=== PATIENT | male | born 1985 | race Caucasian/White ===

== ENCOUNTER 2020-04-01 15:56 | Observation (INO) ==
[2020-04-01] MEDS ORDERED: Ondansetron 4 MG/2 ML VIAL IVP ONE (16:10)
[2020-04-01] MEDS ORDERED: Isovue-370 500 ML BOTTLE IVP ONE (16:10)
[2020-04-01] MEDS ORDERED: 0.9 % Sodium Chloride 1,000 ML IVC ONE (16:10)
[2020-04-01 16:40] LABS: Basophils % 0.2 %; Hematocrit 44.2 % (37.5-50.1); Hemoglobin 14.4 g/dL (12.9-16.9); Immature Granulocytes % 0.8 % (0-4); Lymphocytes # 0.6 K/mcL (0.6-4.6); Lymphocytes % 3.1 %; Mean Corpuscular HGB Conc 32.6 g/dL (31.6-35.5); Mean Corpuscular Hemoglobin 28.5 pg (28.0-33.3); Mean Corpuscular Volume 87.5 fL (83.0-100.0); Mean Platelet Volume 11.1 fL (9.4-12.4); Monocytes # 0.8 K/mcL (0.0-1.3); Monocytes % 4.2 %; Neutrophils # 17.6 K/mcL (1.6-8.9); Platelet Count 195 K/mcL (140-400); Red Blood Count 5.05 M/mcL (4.19-5.50); Red Cell Distribution Width 13.3 % (11.5-14.5); Segmented Neutrophils % 91.7 %; White Blood Count 19.1 K/mcL (4.3-11.1)
[2020-04-01 16:50] LABS: INR 1.2; Prothrombin Time 13.7 Seconds (9.4-12.1)
[2020-04-01 16:52] LABS: Activated Partial Thrombo Time 26.3 Seconds (26.0-36.0)
[2020-04-01] MEDS ORDERED: levETIRAcetam 1,000 MG in 0.9 % Sodium Chloride 100 ML IVPB STA (17:01)
[2020-04-01 17:10] LABS: Alanine Aminotransferase 53 Units/L (7-52); Albumin 4.2 g/dL (3.5-5.7); Albumin/Globulin Ratio 1.7 (1.1-2.2); Alkaline Phosphatase 91 Units/L (34-104); Aspartate Amino Transferase 45 Units/L (13-39); BUN/Creatinine Ratio 10 (6-26); Bilirubin,Total 0.4 mg/dL (0.3-1.0); Blood Urea Nitrogen 9 mg/dL (6-20); Calcium 9.1 mg/dL (8.6-10.3); Carbon Dioxide 25 mEq/L (23-29); Chloride 102 mEq/L (98-107); Globulin 2.5 g/dL (2.4-3.5); Glucose 95 mg/dL (70-105); Lipase 29 Units/L (11-82); Osmolality,Calculated 284 (280-300); Potassium 3.1 mEq/L (3.5-5.1); Sodium 138 mEq/L (136-145); Total Protein 6.7 g/dL (6.4-8.9); eGFR For African Americans > 60 (> 60); eGFR For Non-African Americans > 60 (> 60)
[2020-04-01 17:20] LABS: Ferritin 126 ng/mL (20-250); Prolactin 3.95 ng/mL (3.00-14.70)
[2020-04-01] MEDS ORDERED: Potassium Chloride Elixir 20 MEQ/15 ML UDC PO ONE (18:27)
[2020-04-01] MEDS ORDERED: Ondansetron 4 MG/2 ML VIAL IVP PRN (19:58)
[2020-04-01] MEDS ORDERED: Naloxone 0.4 MG/ML INJ IVP PRN (19:58)
[2020-04-01] MEDS ORDERED: Ringers Solution, Lactated 1,000 ML IVC SCH (20:00)
[2020-04-01] MEDS: levETIRAcetam 250 MG TABLET PO SCH (20:54)
[2020-04-01] MEDS ORDERED: Vancomycin 1,500 MG/265 ML IV.SOLN IVPB ONE (23:00)
[2020-04-01] MEDS: cefTRIAXone 2,000 MG in Water for inj. (sterile) 20 ML IVP SCH (23:41)
[2020-04-01] MEDS: Ringers Solution, Lactated 1,000 ML IVC SCH (23:42)
[2020-04-01] MEDS: Dexamethasone 4 MG/ML VIAL IVP SCH (23:42)
[2020-04-01] MEDS: Acetaminophen 325 MG TABLET PO PRN (23:44)
[2020-04-01] MEDS ORDERED: *HR* LORazepam 1 MG TABLET PO ONE (23:59)
[2020-04-02 01:17] LABS: Adenovirus Not Detected (Not Detect); Bordetella Pertussis Not Detected (Not Detect); Chlamydophila pneumoniae Not Detected (Not Detect); Coronavirus 229E Not Detected (Not Detect); Coronavirus HKU1 Not Detected (Not Detect); Coronavirus NL63 Not Detected (Not Detect); Coronavirus OC43 Not Detected (Not Detect); Human Metapneumovirus Not Detected (Not Detect); Human Rhinovirus/Enterovirus Not Detected (Not Detect); Influenza A Subtype 2009 H1 Not Detected (Not Detect); Influenza B Not Detected (Not Detect); Mycoplasma pneumoniae Not Detected (Not Detect); Parainfluenza Virus 1 Not Detected (Not Detect); Parainfluenza Virus 2 Not Detected (Not Detect); Parainfluenza Virus 3 Not Detected (Not Detect); Parainfluenza Virus 4 Not Detected (Not Detect); Respiratory Syncytial Virus Not Detected (Not Detect); SARS-CoV-2 Not Detected (Not Detect)
[2020-04-02] MEDS: Dexamethasone 4 MG/ML VIAL IVP SCH (03:40)
[2020-04-02] MEDS: Ringers Solution, Lactated 1,000 ML IVC SCH ×2 (03:43→09:51)
[2020-04-02] MEDS ORDERED: Ringers Solution, Lactated 250 ML IVC PRN (06:21)
[2020-04-02] MEDS: *HR* Enoxaparin 40 MG/0.4 ML SYRINGE SQ SCH (06:40)
[2020-04-02 07:01] LABS: INR 1.3; Prothrombin Time 15.2 Seconds (9.4-12.1)
[2020-04-02 07:12] LABS: Basophils % 0.2 %; Hematocrit 43.7 % (37.5-50.1); Hemoglobin 13.7 g/dL (12.9-16.9); Immature Granulocytes % 0.7 % (0-4); Lymphocytes # 0.9 K/mcL (0.6-4.6); Lymphocytes % 6.5 %; Mean Corpuscular HGB Conc 31.4 g/dL (31.6-35.5); Mean Corpuscular Hemoglobin 27.8 pg (28.0-33.3); Mean Corpuscular Volume 88.8 fL (83.0-100.0); Mean Platelet Volume 11.2 fL (9.4-12.4); Monocytes # 0.1 K/mcL (0.0-1.3); Monocytes % 0.8 %; Neutrophils # 12.5 K/mcL (1.6-8.9); Platelet Count 198 K/mcL (140-400); Red Blood Count 4.92 M/mcL (4.19-5.50); Red Cell Distribution Width 13.5 % (11.5-14.5); Segmented Neutrophils % 91.8 %; White Blood Count 13.6 K/mcL (4.3-11.1)
[2020-04-02 07:32] LABS: Albumin 3.9 g/dL (3.5-5.7); Albumin/Globulin Ratio 1.5 (1.1-2.2); Bilirubin,Indirect 0.3 mg/dL (0.0-1.0); Bilirubin,Total 0.3 mg/dL (0.3-1.0); Globulin 2.6 g/dL (2.4-3.5); Total Protein 6.5 g/dL (6.4-8.9)
[2020-04-02 07:42] LABS: Alanine Aminotransferase 42 Units/L (7-52); Albumin 3.9 g/dL (3.5-5.7); Albumin/Globulin Ratio 1.6 (1.1-2.2); Alkaline Phosphatase 74 Units/L (34-104); Aspartate Amino Transferase 25 Units/L (13-39); BUN/Creatinine Ratio 14 (6-26); Bilirubin,Total 0.3 mg/dL (0.3-1.0); Blood Urea Nitrogen 10 mg/dL (6-20); Carbon Dioxide 23 mEq/L (23-29); Chloride 109 mEq/L (98-107); Chol/HDL Ratio 3.9 (0-4.9); Cholesterol 129 mg/dL (< 200); Globulin 2.5 g/dL (2.4-3.5); Glucose 140 mg/dL (70-105); HDL Cholesterol 33 mg/dL (40-59); LDL Cholesterol,Calculated 81 mg/dL (< 100); Magnesium 1.8 mg/dL (1.6-2.6); Osmolality,Calculated 289 (280-300); Phosphorous 1.9 mg/dL (2.7-4.5); Potassium 4.5 mEq/L (3.5-5.1); Sodium 139 mEq/L (136-145); Total Protein 6.4 g/dL (6.4-8.9); Triglycerides 74 mg/dL (< 150); Troponin I 0.04 ng/mL (< 0.04); eGFR For African Americans > 60 (> 60); eGFR For Non-African Americans > 60 (> 60)
[2020-04-02] MEDS: levETIRAcetam 250 MG TABLET PO SCH ×2 (07:48→22:28)
[2020-04-02 07:58] LABS: Hepatitis B Surface Antigen Nonreactive (Nonreactive)
[2020-04-02 08:27] LABS: Hepatitis A Antibody IgM Nonreactive (Nonreactive); Hepatitis B Core IgM Nonreactive (Nonreactive); Hepatitis C Virus Antibody Nonreactive (Nonreactive)
[2020-04-02] MEDS ORDERED: Gadolinium Contrast Agent (WT Based) IV PRN (09:02)
[2020-04-02] MEDS: cefTRIAXone 2,000 MG in Water for inj. (sterile) 20 ML IVP SCH ×2 (09:50→22:29)
[2020-04-02] MEDS: Acyclovir 500 MG in D5% in Water 100 ML IVPB SCH ×2 (09:51→15:54)
[2020-04-02 10:12] LABS: Bilirubin,Urine Negative (Negative); Blood,Urine Negative (Negative); Clarity,Urine Clear (Clear); Color,Urine Colorless (Yellow); Glucose,Urine (UA) Normal (Normal); Ketones,Urine Negative (Negative); Leukocyte Esterase,Urine Negative (Negative); Nitrite,Urine Negative (Negative); PH,Urine 7.5 pH Units (5.0-8.0); Protein,Urine Negative (Neg-Trace); Specific Gravity,Urine 1.012 (1.010-1.025); Urobilinogen,Urine Normal (Normal)
[2020-04-02 13:27] LABS: Appearance,CSF Clear (Clear)
[2020-04-02] MEDS: Acetaminophen 325 MG TABLET PO PRN ×2 (13:29→22:28)
[2020-04-02 13:30] LABS: Red Blood Cell,CSF < 2000 RBC/mcL
[2020-04-02] MEDS: Vancomycin 1,250 MG/262.5 ML IV.SOLN IVPB SCH ×2 (13:30→22:30)
[2020-04-02 13:58] LABS: Glucose,CSF 80 mg/dL (40-70); Total Protein,CSF 40 mg/dL (15-45)
[2020-04-02] MEDS: Nicotine 21 MG PATCH.TD24 TD SCH (14:28)
[2020-04-02] MEDS ORDERED: *HR* LORazepam 2 MG/ML VIAL IVP PRN (14:52)
[2020-04-02] MEDS ORDERED: *HR* HYDROcodone/Acet 5/325 mg TABLET PO ONE (15:19)
[2020-04-02] MEDS ORDERED: *HR* LORazepam 2 MG/ML VIAL ONE (17:57)
[2020-04-02] MEDS ORDERED: *HR* LORazepam 2 MG/ML VIAL IVP ONE (18:00)
[2020-04-03] MEDS: Acyclovir 500 MG in D5% in Water 100 ML IVPB SCH ×2 (00:44→07:49)
[2020-04-03 02:18] LABS: Basophils % 0.3 %; Eosinophils % 0.3 %; Hemoglobin 12.4 g/dL (12.9-16.9); Immature Granulocytes % 0.4 % (0-4); Lymphocytes # 2.7 K/mcL (0.6-4.6); Lymphocytes % 22.7 %; Mean Corpuscular HGB Conc 32.6 g/dL (31.6-35.5); Mean Corpuscular Hemoglobin 28.4 pg (28.0-33.3); Mean Platelet Volume 11.2 fL (9.4-12.4); Monocytes # 0.7 K/mcL (0.0-1.3); Monocytes % 5.9 %; Neutrophils # 8.4 K/mcL (1.6-8.9); Platelet Count 204 K/mcL (140-400); Red Blood Count 4.37 M/mcL (4.19-5.50); Red Cell Distribution Width 13.1 % (11.5-14.5); Segmented Neutrophils % 70.4 %
[2020-04-03 02:44] LABS: BUN/Creatinine Ratio 17 (6-26); Blood Urea Nitrogen 13 mg/dL (6-20); Calcium 8.6 mg/dL (8.6-10.3); Carbon Dioxide 22 mEq/L (23-29); Chloride 109 mEq/L (98-107); Glucose 108 mg/dL (70-105); Magnesium 1.8 mg/dL (1.6-2.6); Osmolality,Calculated 289 (280-300); Phosphorous 2.6 mg/dL (2.7-4.5); Potassium 3.3 mEq/L (3.5-5.1); Sodium 139 mEq/L (136-145); eGFR For African Americans > 60 (> 60); eGFR For Non-African Americans > 60 (> 60)
[2020-04-03] MEDS: *HR* Enoxaparin 40 MG/0.4 ML SYRINGE SQ SCH (05:18)
[2020-04-03] MEDS: Ringers Solution, Lactated 1,000 ML IVC SCH ×2 (07:26→07:54)
[2020-04-03] MEDS: Nicotine 21 MG PATCH.TD24 TD SCH (07:49)
[2020-04-03] MEDS: levETIRAcetam 250 MG TABLET PO SCH (07:49)
[2020-04-03 10:29] LABS: Amphetamine Screen,Urine Negative ng/mL (Cutoff=1000); Barbiturate Screen,Urine Negative ng/mL (Cutoff=200); Benzodiazepines Screen,Urine Negative ng/mL (Cutoff=200); Cannabinoid Screen,Urine Positive ng/mL (Cutoff = 50); Cocaine Screen,Urine Negative ng/mL (Cutoff= 300); Opiate Screen,Urine Negative ng/mL (Cutoff=300); Phencyclidine Screen,Urine Negative ng/mL (Cutoff=25)
[2020-04-03] MEDS: cefTRIAXone 2,000 MG in Water for inj. (sterile) 20 ML IVP SCH (10:50)
[2020-04-03] MEDS: Vancomycin 1,250 MG/262.5 ML IV.SOLN IVPB SCH (11:17)
[2020-04-03 11:45] VITALS: BP 124/78
[2020-04-03] MEDS ORDERED: Vancomycin 1,250 MG/262.5 ML IV.SOLN IVPB SCH (12:00)
[2020-04-04 07:43] LABS: Acinetobacter baumannii by PCR Not Detected (Not Detect); Candida albicans by PCR Not Detected (Not Detect); Candida glabrata by PCR Not Detected (Not Detect); Candida krusei by PCR Not Detected (Not Detect); Candida parapsilosis by PCR Not Detected (Not Detect); Candida tropicalis by PCR Not Detected (Not Detect); Enterobacter cloacae Cmplx PCR Not Detected (Not Detect); Enterobacteriaceae by PCR Not Detected (Not Detect); Enterococcus by PCR Not Detected (Not Detect); Escherichia coli by PCR Not Detected (Not Detect); Klebsiella oxytoca by PCR Not Detected (Not Detect); Klebsiella pneumoniae by PCR Not Detected (Not Detect); Proteus by PCR Not Detected (Not Detect); Pseudomonas aeruginosa by PCR Not Detected (Not Detect); Serratia marcescens by PCR Not Detected (Not Detect); Staphylococcus aureus by PCR Not Detected (Not Detect); Staphylococcus by PCR DETECTED (Not Detect); Streptococcus agalactiae(B)PCR Not Detected (Not Detect); Streptococcus by PCR Not Detected (Not Detect); Streptococcus pneumoniae PCR Not Detected (Not Detect); Streptococcus pyogenes (A) PCR Not Detected (Not Detect); blaKPC Carbapenem-Resist Gene Not Detected (Not Detect); mecA Methicillin-Resist Gene Not Detected (Not Detect); vanA/B Vancomycin-Resist Genes Not Detected (Not Detect)
[2020-04-06 14:09] LABS: HSV Source NOT PROVIDED
[2020-04-06 15:50] LABS: Enterovirus RNA Qual (PCR) NOT DETECTED
== END 2020-04-03 12:32 | disposition left against medical advice (07) ==
LOC: 3BNU 15:56 → EMEROOARM 15:56 → SUATTDRO 18:41 → 3BNU 19:44
PROVIDERS: ADMIT Family Medicine; ATTEND Internal Medicine